=== PATIENT | male | born 1980 | race Caucasian/White ===

== ENCOUNTER 2018-11-07 15:46 | Outpatient (CLI) | payer BC | END 2018-11-07 15:47 | disposition home or self-care (01) | LOC: CTENTCT 15:46 | PROVIDERS: ATTEND Specialist | DX: J31.0 Chronic rhinitis (principal); R51 Headache | CPT/HCPCS: 70486 ==

== ENCOUNTER → 2019-01-22 | Day surgery (SDC) | payer BC ==
[2019-01-21 14:21] VITALS: BMI 33.1
[~2019-01-22] MED LIST: Bacitracin Zinc Ointment 30 gm TUBE ONE; EPINEPHrine 1 MG/ML AMP ONE; Fentanyl 100 MCG/2 ML VIAL ONE; HYDROcodone/Acetaminophen 5/325 mg Tablet ONE; Labetalol HCl 100 MG/20 ML VIAL ONE; Lidocaine 1% PF 5 ML VIAL ONE; Lidocaine 1% w/Epinephrine 1:100K 20 ML VIAL ONE; Ondansetron PF 4 MG/2 ML Vial ONE; Oxymetazoline HCl 0.05% ( 15 ML ) ONE; PHENYLEPHRINE-NS 100 MCG/ML 10 ML SYRINGE ONE; PROPOFOL 200 MG/20 ML VIAL ONE; ePHEDrine 50 MG/ML VIAL ONE
--- NOTE | 2019-01-23 11:20 | OP ---
DATE OF PROCEDURE: 01/22/2019 PREOPERATIVE DIAGNOSES: Deviated septum, hypertrophic inferior turbinates, and chronic recurrent sinusitis. POSTOPERATIVE DIAGNOSES: Deviated septum, hypertrophic inferior turbinates, and chronic recurrent sinusitis. PROCEDURES PERFORMED: 1. Septoplasty. 2. Bilateral nasal endoscopy with submucosal resection of inferior turbinates. 3. Bilateral nasal endoscopy with maxillary antrostomy with removal of tissue. 4. Bilateral nasal endoscopy with total ethmoidectomy. 5. Bilateral nasal endoscopy with frontal sinusotomy. 6. Bilateral nasal endoscopy with sphenoidotomy. DESCRIPTION OF PROCEDURE: SEPTOPLASTY: After local anesthesia was infiltrated into the submucoperichondrial plane, a standard Trell incision was made with a #15 blade down to the level of the septal cartilage. The caudal elevator was used to elevate the mucoperichondrium from the underlying cartilage. We then proceeded beyond the bony cartilaginous junction and elevated the bony periosteum as well. Great attention was paid to the spur to prevent rent formation in the septal flap. A transcartilaginous incision was then made, while preserving an adequate dorsal and caudal cartilaginous strut for tip support. The deformed cartilage was removed and disarticulated from the bony cartilaginous junction and maxillary crest. This was placed in saline and would later be crushed and returned to the mucoperichondrial envelope. We then elevated the contralateral periosteum from the bony cartilaginous region and removed the deformed portions of the bone and bony spurs. The cartilage was then crushed and placed back into the mucoperichondrial envelope and the mucosa was re-approximated with a quilting stitch composed of rapidly absorbent gut suture. The [place] incision was also closed with interrupted gut suture. At the completion of the case, Sutton splints were placed and suture secured to the caudal septum. BILATERAL NASAL ENDOSCOPY WITH SUBMUCOSAL RESECTION OF INFERIOR TURBINATES: After consent was obtained, the patient was identified, brought to the operating room, and placed on the operating room table in the supine position. Consent was obtained, notifying the patient of the possibility of additional infections, bleeding, brain injury, and eye/orbital injury. The patient was placed on the operating room table, and general endotracheal anesthesia and intravenous access was obtained. The patient was then positioned, prepped and draped for endoscopic sinus surgery. Nasal preparation included trimming nasal vestibular hairs and spraying in topical Afrin. We then placed Afrin topical solution on nasal pledgets and strategically located them intranasally. The perinasal mucosa was injected with 1% lidocaine with 1:100,000 epinephrine in the submucoperichondrial plane of the septum, lateral nasal wall, and anterior to the uncinate. The patient was then prepped and draped in a sterile fashion and positioned for endoscopic sinus surgery. With the 0-degree endoscope, the patient underwent systematic nasal endoscopy. There were no suspicious internasal masses or lesions identified. We then focused our attention to the osteomeatal complex region under the middle turbinate. The inferior turbinates were visualized with a 0 degree endoscope and outfractured with a Devin elevator. The inferior medial aspect was cauterized with the electrocautery. Hemostasis was obtained . After adequate airway was established, we turned our attention to the contralateral side and used a similar procedure. Again, a Devin elevator was used to outfracture inferior turbinates under endoscopic visualization. With a suction cautery, the free inferior medial aspect was cauterized under direct visualization along the length of the inferior turbinate. At this point, we then turned our attention to the contralateral side and proceeded with endoscopic sinus surgery. At the completion of the case, Rice keel splints were placed in the ethmoid cavities after the ethmoidectomy. There were no complications. The patient tolerated the procedure well and was discharged to the recovery room in stable condition prior to return to the preoperative day stay with ultimate discharge home. Prescriptions for pain medication and antibiotics were provided. The patient received intramuscular Depo-Medrol during the case. BILATERAL NASAL ENDOSCOPY WITH MAXILLARY ANTROSTOMY WITH REMOVAL OF TISSUE: The uncinate was then identified and the extent of the uncinate was appreciated by out-fracturing the uncinate with the ball-tip probe. We then used the sickle blade to disarticulate the uncinate from the lateral nasal wall. This was then removed with straight biting and upbiting punches with the remaining shrouds of mucosa and bony septum removed with the micro-debrider. The natural os of the maxillary sinus was then identified and enlarged with the maxillary punches and back biting forceps. BILATERAL NASAL ENDOSCOPY WITH TOTAL ETHMOIDECTOMY: The anterior face of the ethmoid bulla was entered and with the micro-debrider, dissection continued posteriorly to the ground lamella. The limits of dissection included the insertion of the middle turbinate, medial orbital wall, and base of skull. We similarly identified the frontal recess and removed shrouds of bone and debris in that region to obtain patency into the agger nasi region and frontal recess. We then entered the ground lamella and its anteroinferior aspect and proceeded posteriorly, opening the posterior ethmoid air-cell system. Again, the limits of dissection included the base of skull and medial orbital wall. BILATERAL NASAL ENDOSCOPY WITH FRONTAL SINUSOTOMY: Following the ethmoidectomy, we then turned our attention to the frontal nasal recess. The agger nasi cells were addressed and the frontal recess was exposed. The natural opening to the frontal sinus was identified. At this point, any obstructing shrouds of mucosa and bony fragments were removed with a curved microdebrider. The wound was then examined and found to be free of any obstructing debris. We then turned our attention to the contralateral side and performed a similar procedure again under endoscopic visualization using a 45-degree scope. We were able to visualize the frontal recess. Obstructing shrouds of mucosa and bone were removed with a microdebrider. The natural os of frontal sinus was identified and enlarged and irrigated. At this point, the frontal sinusotomy was completed and we turned to the next area of concern. BILATERAL NASAL ENDOSCOPY WITH SPHENOIDOTOMY: The anterior face of the sphenoid was identified and entered in its extreme anteroinferior aspect. A sphenoid punch was then used to enlarge the sphenoidotomy and no injury to the optic nerve or internal carotid artery occurred. Job ID: [id number]
== END ==
LOC: SDC 08:43
PROVIDERS: ATTEND Specialist
PROC: 09SM0ZZ Reposition Nasal Septum, Open Approach (ICD-10-PCS; principal; 2019-01-22)
PROC: 099T8ZZ Drainage of Left Frontal Sinus, Via Natural or Artificial Opening Endoscopic (ICD-10-PCS; principal; 2019-01-22)
PROC: 099S8ZZ Drainage of Right Frontal Sinus, Via Natural or Artificial Opening Endoscopic (ICD-10-PCS; principal; 2019-01-22)
PROC: 09BR8ZZ Excision of Left Maxillary Sinus, Via Natural or Artificial Opening Endoscopic (ICD-10-PCS; principal; 2019-01-22)
PROC: 09BQ8ZZ Excision of Right Maxillary Sinus, Via Natural or Artificial Opening Endoscopic (ICD-10-PCS; principal; 2019-01-22)
PROC: 09TU8ZZ Resection of Right Ethmoid Sinus, Via Natural or Artificial Opening Endoscopic (ICD-10-PCS; principal; 2019-01-22)
PROC: 09SL8ZZ Reposition Nasal Turbinate, Via Natural or Artificial Opening Endoscopic (ICD-10-PCS; principal; 2019-01-22)
PROC: 09TV8ZZ Resection of Left Ethmoid Sinus, Via Natural or Artificial Opening Endoscopic (ICD-10-PCS; principal; 2019-01-22)
PROC: 099X8ZZ Drainage of Left Sphenoid Sinus, Via Natural or Artificial Opening Endoscopic (ICD-10-PCS; principal; 2019-01-22)
PROC: 099W8ZZ Drainage of Right Sphenoid Sinus, Via Natural or Artificial Opening Endoscopic (ICD-10-PCS; principal; 2019-01-22)
DX: J32.9 Chronic sinusitis, unspecified (principal); G47.33 Obstructive sleep apnea (adult) (pediatric); F98.8 Other specified behavioral and emotional disorders with onset usually occurring in childhood and adolescence; N46.9 Male infertility, unspecified; I10 Essential (primary) hypertension; E78.5 Hyperlipidemia, unspecified; F41.9 Anxiety disorder, unspecified; Z79.899 Other long term (current) drug therapy; Z88.8 Allergy status to other drugs, medicaments and biological substances; Z99.89 Dependence on other enabling machines and devices
CPT/HCPCS: J0171; J2001; J2405; J2704; J3010; J3490